=== PATIENT | female | born 1985 | race American Indian/Alaskan Native ===

== ENCOUNTER 2022-05-29 18:50 | Emergency (ER) | payer OTHER ==
[~2022-05-29] VITALS: Ht 167.6 cm; Wt 91.9 kg
[~2022-05-29 18:50] MED LIST: NAPROSYN500 MG PO; TYLENOL325 MG PO
== END 2022-05-30 00:48 | disposition home or self-care (01) ==
LOC: ED 18:50
DX: B37.31 Acute candidiasis of vulva and vagina (principal)
CPT/HCPCS: 99282

== ENCOUNTER 2024-05-10 15:58 | Emergency (ER) | payer BC, OTHER ==
[~2024-05-10] VITALS: Ht 167.6 cm; Wt 107.0 kg
[2024-05-10] MEDS ORDERED: IBUPROFEN 600 MG TAB PO ONE (16:45)
[2024-05-10 17:10] LABS: BILIRUBIN, URINE NEGATIVE (negative); BLOOD/HGB, URINE TRACE-I (Negative); KETONE, URINE NEGATIVE (Negative); LEUK ESTERASE, URINE NEGATIVE (negative); NITRITE, URINE NEGATIVE (negative)
[2024-05-10 17:22] LABS: BACTERIA, URINE NONE SEEN /hpf (negative); CASTS, URINE NONE SEEN \\lpf; COLLECTION TYPE, URINE CLEAN CATCH; CRYSTALS, URINE NONE SEEN (0-1+); EPITHELIAL CELLS, URINE SQUAMOUS 1+ /lpf (0-1+); RED BLOOD CELLS, URINE 0-1 /hpf (0-5); REFLEX CULTURE, URINE No (No); WHITE BLOOD CELLS, URINE 0-1 /HPF (0-5)
[2024-05-10 18:43] VITALS: BP 103/65
== END 2024-05-10 18:48 | disposition home or self-care (01) ==
LOC: ED 15:58
PROVIDERS: Emergency Medicine
DX: R10.9 Unspecified abdominal pain (principal); M54.89 Other dorsalgia
CPT/HCPCS: 81001; A9270